=== PATIENT | female | born 1980 | race Caucasian/White ===

== ENCOUNTER 2016-10-12 04:00 | Inpatient (IN) | payer OTHER ==
[~2016-10-12] VITALS: Ht 165.1 cm; Wt 81.6 kg
--- NOTE | ~2016-10-12 | PN ---
Unit #: [id number] #: [id number] Patient: GONZALO VILLA [id number] [facility] [address] [place] [address] [id number] I MR#: [id number] NAME: GONZALO VILLA. ROOM: P181 Age: 36 Sex: F Admission Date: 10/12/2016 : 1980 Attending Physician: Mercy Crawley M.D. Admitting Physician: Mercy Crawley M.D. Primary Care Physician: Primary Care Physician Katarina SOLOMON NOTES DATE 10/13/2016 DISCUSSION Ms. Villa is a 36-year-old white female with history of mood disorder and substance abuse who was seen today and chart was reviewed and case was discussed with the staff. She has been anxious, withdrawn, rather seclusive to himself. Meanwhile, she has been cooperative with treatment recommendations and has been taking medications and tolerating them fairly well with no reported side effects. MENTAL STATUS EXAMINATION Young white female who was casually dressed with fair personal hygiene and appears to be in no acute distress or discomfort. She was awake and alert on interaction with intact orientation. Her mood was anxious with congruent affect. She denies any suicidal or homicidal ideation. Her insight and judgement remains slightly impaired. TREATMENT PLAN 1. Will continue on current medications and treatment protocol. Will monitor her response to the medications and make further adjustments as needed. 2. Will continue to follow up. Dictated by... Reynaldo Andrade/jen TD: 10/13/2016 18:02 JOB #: [id number] Unit #: [id number] #: [id number] Patient: GONZALO VILLA RD PROGRESS NOTES Page 1 of 1 X Mercy Crawley MD PROGRESS NOTE
--- NOTE | ~2016-10-12 | PN ---
Unit #: [id number] #: [id number] Patient: GONZALO VILLA [id number] [facility] [address] [place] [address] [id number] MR#: [id number] NAME: GONZALO VILLA. ROOM: P181 Age: 36 Sex: F Admission Date: 10/12/2016 : 1980 Attending Physician: Mercy Crawley M.D. Admitting Physician: Mercy Crawley M.D. Primary Care Physician: Primary Care Physician Katarina SOLOMON NOTES DATE October 14, 2016 DISCUSSION Ms. Villa is a 36-year-old white female, who was seen today and chart was reviewed and the case was discussed with the staff. The patient has been anxious, withdrawn, and rather seclusive to herself. Meanwhile, she has been cooperative with the treatment recommendations, and has been taking the medications and tolerating them fairly well with no reported side effects. MENTAL STATUS EXAMINATION Young white female, who was casually dressed with fair personal hygiene and appears to be in no acute distress or discomfort. She was awake and alert on interaction with intact orientation. Her mood is anxious with a congruent affect. She denies any suicidal or homicidal ideations. Her insight and judgment remain slightly impaired. TREATMENT PLAN 1. We will continue her on her current medications and treatment protocol, and will monitor her response to the medications, and make further adjustments as needed. 2. We will continue to followup. Dictated by... Reynaldo Andrade/davion TD: 10/15/2016 09:08 JOB #: [id number] Unit #: [id number] #: [id number] Patient: GONZALO VILLA RD PROGRESS NOTES Page 1 of 1 X Mercy Crawley MD PROGRESS NOTE
--- NOTE | ~2016-10-12 | PA ---
Unit #: [id number] #: [id number] Patient: GONZALO VILLA [id number] [facility] [address] [place] [address] [id number] MR#: [id number] NAME: GONZALO VILLA ROOM: P181 Age: 36 Sex: F Admission Date: 10/12/2016 : 1980 Date of Assessment: Attending Physician: Mercy Crawley M.D. Admitting Physician: Mercy Crawley M.D. PSYCHIATRIC ASSESSMENT DATE OF SERVICE 10/12/2016. IDENTIFYING DATA Ms. Villa is a 36-year-old, single, white female who is a resident of [place], [place] and was self-referred to the hospital on a voluntary basis. CHIEF COMPLAINT "I'm depressed and I'm suicidal." HISTORY OF PRESENT ILLNESS Ms. Villa is a 36-year-old, white, female with history of substance abuse and mood disorder, who brought herself to the hospital stating that she is homeless and she came to [place] from [place] on Saturday and she went to [facility] and then not get admitted, and then she went to [facility] and they did not want to treat her for her depression and that she is looking for long-term detox program and reports increasing symptoms of depression and she reports that she has been increasingly tearful and has been crying and she is trying to remain clean from pain pills, meth, and marijuana. Her last use of marijuana in 10/07. She smoked a joint and reports using methamphetamine via snorting with last use being 5 days ago when she used reports using pain pills and she usually uses Lortab and Suboxone, that she ran out of them and has not used anything in the last 3 days. She does report increasing depression, but she has had thoughts of jumping in front of did not follow through with it and reports that she is tired of trying to get help and she feels like every time she takes one step forward, she takes 2 steps back and does endorse feelings of hopelessness and helplessness, and suicidal ideations and as such, recommendation for inpatient level of care for safety and stabilization was made. The patient was transferred to us. SUBSTANCE ABUSE HISTORY The patient reports extensive history of substance abuse and dependence including alcohol, cannabis, cocaine, acid, opioids, and methamphetamine abuse, and currently she has been using opioids and methamphetamine and cannabis on regular basis. She denies any current detox symptoms. PAST PSYCHIATRIC HISTORY The patient has had history of multiple inpatient chemical dependency and psychiatric treatment including being at [facility], at [facility], and [facility], and review of the medical records indicate that currently she is on Cymbalta, but does not feel that it has been helping her. Unit #: [id number] #: [id number] Patient: GONZALO VILLA A PAST MEDICAL HISTORY Chronic back pain, bulging disks in the neck. ALLERGIES No known medication allergies. PERSONAL AND SOCIAL HISTORY A 36-year-old white female who reports that she is single and unemployed, and essentially homeless and has poor social support system. MENTAL STATUS EXAMINATION Young white female who was casually dressed with fair personal hygiene, appears to be in no acute distress or discomfort. She was awake and alert on interaction with intact orientation to time, place, and person. Her mood was anxious and depressed with a congruent affect. Her speech was slow and restricted in content. Her thought processes were disorganized with some looseness of associations and paranoid ideations. Her insight and judgment remain significantly impaired. DIAGNOSTIC IMPRESSION Psychiatric: Major depressive disorder, recurrent, moderate, without psychotic features; opioid dependence, moderate; methamphetamine abuse, moderate; cannabis abuse, moderate. Medical: Chronic pain, bulging disks in the back. Stressors: Moderate psychosocial stressors. TREATMENT PLAN 1. The patient has presented with history of mood disorder and substance abuse. We will need inpatient hospitalization for safety and stabilization. We will start her back on her home medications. We will also consider initiating antidepressant therapy. 2. Supportive therapy was provided to the patient. ESTIMATED LENGTH OF STAY 5 to 7 days. ABILITY TO HELP SELF Limited. WILLINGNESS TO HELP SELF The patient appears to be willing to help self. STRENGTHS 1. Communicative. 2. Cooperative. PROBLEMS 1. Chronic chemical dependency. 2. Chronic dysphoric symptoms. 3. Poor social support system. DISCHARGE CRITERIA This will be contingent upon the patient's ability to show resolution of her depression and anxiety and her ability to stay safe to herself, particularly after discharge from the hospital. Dictated by... Unit #: [id number] #: [id number] Patient: GONZALO VILLA M.D. IAA/je TD: 10/13/2016 12:41 JOB #: [id number] PSYCHIATRIC ASSESSMENT Page 1 of 1 X Mercy Crawley MD PSYCHIATRIC ASSESSMENT
--- NOTE | ~2016-10-12 | HP ---
Unit #: [id number] #: [id number] Patient: GONZALO VILLA [id number] [place] [address] [id number] MR#: [id number] NAME: GONZALO VILLA. ROOM: P171 Age: 36 Sex: F Admission Date: 10/12/2016 : 1980 Attending Physician: Mercy Crawley M.D. Admitting Physician: Mercy Crawley M.D. Primary Care Physician: Primary Care Physician No HISTORY AND PHYSICAL HISTORY OF PRESENT ILLNESS The patient is a 36-year-old female, admitted to [facility] on 10/12/2016, for suicidal ideations and polysubstance abuse. PAST MEDICAL HISTORY 1. Polysubstance use. 2. Plantar fascitis. 3. Bulging discs in her neck. PAST SURGICAL HISTORY Bilateral tubal ligation. SOCIAL HISTORY The patient is unemployed and homeless. She smokes one pack of cigarettes daily, uses methamphetamine, heroin, prescription opiates, and cocaine. FAMILY MEDICAL HISTORY Noncontributory. ALLERGIES No known drug allergies. CURRENT MEDICATIONS Include: 1. Gabapentin 2. Naproxen 3. Cetirizine 4. Omeprazole 5. Cymbalta REVIEW OF SYSTEMS CONSTITUTIONAL: No fever or chills. HEENT: Denies any sore throat, ear pain or runny nose. CARDIOVASCULAR: Denies chest pain, irregular heart rhythm or palpitations. CHEST: Denies shortness of breath or cough. No hemoptysis. GASTROINTESTINAL: Denies nausea, vomiting, diarrhea or chronic constipation. ENDOCRINE: Denies history of increased thirst or urination. No recent significant weight loss or gain. GENITOURINARY: Denies dysuria, frequency, or hematuria. SKIN: Denies any rashes. HEMATOLOGIC: Denies history of increased bleeding or bruising. MUSCULOSKELETAL: Denies any hot, swollen joints. No generalized muscle Unit #: [id number] #: [id number] Patient: GONZALO VILLA pain. NEUROLOGIC: Denies problems with vision or speech. No frequent, severe headaches. No numbness, tingling or weakness in any extremities. Denies loss of bladder or bowel control. PHYSICAL EXAMINATION GENERAL: Awake, alert, oriented, and in no acute distress. VITAL SIGNS: Temperature 98.4, heart rate 84, respirations 16, and blood pressure 127/91. HEIGHT: 5 feet 5 inches. WEIGHT: 180 pounds. SKIN: Warm and dry without rash or lesion. HEENT: Normocephalic. TMs not viewed. Oral and nasal passages clear. Conjunctivae clear. PERRLA. EOMs intact. NECK: Supple without lymphadenopathy or thyromegaly. HEART: Regular rate and rhythm without murmur. LUNGS: Clear. ABDOMEN: Soft, nontender. : Not done. EXTREMITIES: No evidence of cyanosis, clubbing or edema. Moves all without focal deficit. NEUROLOGICAL: Grossly within normal limits. Cranial Nerves: II: Visual ruiz are intact. III, IV AND : Extraocular movements are intact. Pupils are equal, round and reactive to light. V: Facial sensation is grossly normal. VII: Facial movements and expression are normal. VIII: Auditory acuity grossly intact. IX, X: Uvula is midline. Phonation is normal. XI: Patient shrugs shoulders and turns head normally. XII: Tongue protrudes in the midline. Sensory and Motor Function: Sensory and motor sensation is grossly normal. Motor: moves all extremities well. Coordination: Gait is normal. Deep Tendon Reflexes: Intact. IMPRESSION 1. Psychiatric admission. 2. Polysubstance use. 3. Plantar fascitis. 4. Bulging discs in her neck. RECOMMENDATIONS Psychiatric, per psychiatrist. MEDICAL No contraindications to participating in facility's activities. MEDICAL PROGNOSIS Good. MEDICAL CONDITION Stable. Dictated by... Irais Lacy/davion Unit #: [id number] #: [id number] Patient: GONZALO VILLA TD: 10/12/2016 12:00 JOB #: [id number] HISTORY AND PHYSICAL Page 1 of 1 X SADIE NGUYEN APRN HISTORY AND PHYSICAL
--- NOTE | ~2016-10-12 | DS ---
Unit #: [id number] #: [id number] Patient: GONZALO VILLA [id number] [facility] [address] [place] [address] [id number] I MR#: [id number] NAME: GONZALO VILLA ROOM: P181 Age: 36 Sex: F Admission Date: 10/12/2016 : 1980 Discharge Date: 10/15/2016 Attending Physician: Mercy Crawley M.D. DISCHARGE SUMMARY IDENTIFYING DATA Ms. Villa is a 36-year-old single white female, who is a resident of [place], [place], and was self-referred to the hospital on a voluntary basis with chief complaint for "I'm depressed and I'm suicidal." DISCHARGE DIAGNOSES Psychiatric: Major depressive disorder, recurrent, moderate, without psychotic features; opioid dependence, moderate; methamphetamine abuse, moderate; cannabis abuse, moderate. Medical: Chronic pain, bulging disks. Stressors: Mild psychosocial stressors. HISTORY OF PRESENT ILLNESS Please see initial psychiatric evaluation for details. PAST PSYCHIATRIC HISTORY Please see initial psychiatric evaluation for details. PAST MEDICAL HISTORY Please see initial psychiatric evaluation for details. HOSPITAL COURSE The patient was admitted to the adult psychiatric and chemical dependency unit at [facility] and was oriented to the hospital environment. Routine p.r.n. medications were initiated, and she was started back on her home medications and medications were adjusted and Celexa and Depakote were initiated to help with mood and she was closely monitored. She was taking the medications regularly and was tolerating them fairly well and was able to show a decent and therapeutic response with improvement in depression and anxiety, and was seen to be doing much better and was able to show a therapeutic response to treatment interventions and was denying any suicidal ideations, intent, or plan and was planning on going to long-term rehab program and as such, it was decided that she will be discharged from our care and will be discharged home and will continue treatment on an outpatient basis. DISCHARGE MEDICATIONS Celexa 20 mg a day for depression and Depakote 500 mg b.i.d. for mood disorder. DISCHARGE CONDITION Stable. PROGNOSIS Unit #: [id number] #: [id number] Patient: GONZALO VILLA. Dictated by... Reynaldo Andrade/je TD: 10/16/2016 23:32 JOB #: [id number] DISCHARGE SUMMARY Page 1 of 1 X Mercy Crawley MD DISCHARGE SUMMARY
[2016-10-12 12:30] LABS: URINE APPEARANCE CLEAR; URINE BILIRUBIN NEG (NEG); URINE BLOOD NEG (NEG); URINE COLOR YELLOW; URINE GLUCOSE NEG (NEG); URINE KETONE NEG (NEG); URINE LEUKOCYTE ESTERASE NEG (NEG); URINE NITRATE NEG (NEG); URINE PROTEIN NEG (NEG); URINE SPECIFIC GRAVITY 1.012 (1.003-1.035); URINE UROBILINOGEN 0.2 MG/DL (NEG)
[2016-10-12 12:45] LABS: AMPHETAMINE NEG (NEG); BARBITURATES NEG (NEG); BENZODIAZEPINES NEG (NEG); COCAINE NEG (NEG); MARIJUANA NEG (NEG); OPIATES POS (NEG); TRICYCLIC ANTIDEPRESSANTS NEG (NEG); U METHADONE NEG (NEG)
[2016-10-13 11:25] LABS: BASOPHIL# 0.1 X10e3 (0-0.3); EOSINOPHIL# 0.3 X10e3 (0-0.7); EOSINOPHIL% 3.9 % (0.0-7.0); HEMATOCRIT 39.6 % (35.0-45.0); HEMOGLOBIN 13.1 gm/dL (12.0-16.0); LYMPHOCYTE# 3.2 X10e3 (1.0-3.5); LYMPHOCYTE% 45.4 % (17.0-45.0); MEAN CELL VOLUME 93.7 FL (83-96); MEAN CORPUSCULAR HEMOGLOBIN 31.1 PG (28-34); MEAN CORPUSCULAR HGB CONC 33.2 g/dL (30-36); MEAN PLATELET VOLUME 9.6 FL (6.5-11.5); MONOCYTE# 0.6 X10e3 (0-1.0); NEUTROPHIL# 2.8 X10e3 (1.5-7.1); NEUTROPHIL% 40.7 % (40-75); PLATELET COUNT 247 X10e3 (140-420); RED BLOOD COUNT 4.23 X10e (3.90-5.30); RED CELL DISTRIBUTION WIDTH 13.4 % (11.0-15.5)
[2016-10-13 11:34] LABS: DIFF IND NO
[2016-10-13 12:27] LABS: ALBUMIN SERUM 3.6 g/dL (3.5-5.0); BILIRUBIN,TOTAL 0.7 mg/dL (0.2-2.0); BUN/CREATININE RATIO 14.44; CALCIUM SERUM 8.7 mg/dL (8.4-10.2); CREATININE SERUM 0.9 mg/dL (0.6-1.4); GLOM FILT RATE Estimated 81.7 mL/min (>60); POTASSIUM 4.4 mmol/L (3.5-5.1); PROTEIN TOTAL SERUM 5.8 g/dL (6.0-8.3)
== END 2016-10-15 11:10 | disposition home or self-care (01) | DRG 885 ==
LOC: P1E 06:05
PROVIDERS: Psychiatry & Neurology Psychiatry
DX: F33.1 Major depressive disorder, recurrent, moderate (principal); F11.20 Opioid dependence, uncomplicated; R45.851 Suicidal ideations; F15.20 Other stimulant dependence, uncomplicated; F12.20 Cannabis dependence, uncomplicated; G89.29 Other chronic pain; M54.9 Dorsalgia, unspecified; Z59.0 Homelessness; Z98.51 Tubal ligation status; F17.210 Nicotine dependence, cigarettes, uncomplicated; M72.2 Plantar fascial fibromatosis
CPT/HCPCS: 80053; 80307; 81003; 84703; 85025; 86592